=== PATIENT | male | born 1970 | race Caucasian/White ===

== ENCOUNTER → 2019-12-26 | Outpatient (CLI) | payer OTHER | LOC: US 09:44 | PROVIDERS: ATTEND Urology | DX: N45.3 Epididymo-orchitis (principal); N43.3 Hydrocele, unspecified; N50.3 Cyst of epididymis | CPT/HCPCS: 76870; 93976 ==

== ENCOUNTER → 2020-06-11 | Outpatient (CLI) | payer OTHER | LOC: US 08:43 | PROVIDERS: ATTEND Urology | DX: N43.40 Spermatocele of epididymis, unspecified (principal) | CPT/HCPCS: 76870 ==